=== PATIENT | male | born 1965 | race Caucasian/White ===

== ENCOUNTER 2016-09-13 20:38 | Observation (INO) | payer OTHER ==
[~2016-09-13] VITALS: Ht 182.9 cm; Wt 90.9 kg
[~2016-09-13 20:38] MED LIST: CENTRUM MEN'S1 EACH PO; CITALOPRAM HBR20 MG PO; CLARITIN10 M3 PO; FISH OIL 1,0001 EAC7 PO; FOLIC ACID1 MG PO; INDERAL10 MG PO; NORVASC10 MG PO; PROTONIX40 MG PO; THIAMINE HCL100 MG PO; TUMS500 MG PO; ZOLPIDEM TARTRAT5 MG PO
[2016-09-13 21:07] LABS: HEMATOCRIT 45.8 % (38.0-50.0); MCH 32.4 PG (29.0-34.0); MCHC 34.1 G/DL (30.0-36.0); MEAN PLAT.VOLUME 9.4 uM^3 (9.0-12.4); PLATELET COUNT 106 K/uL (156-360); RBC DIS.WIDTH-CV 11.4 % (11.8-14.6); RBC DIS.WIDTH-SD 39.8 % (39-53); RED BLOOD COUNT 4.82 M/uL (4.00-5.50); WHITE BLOOD COUNT 5.1 K/uL (4.1-10.2)
[2016-09-13 21:16] LABS: CHLORIDE 101 mEq/L (99-109); POTASSIUM 3.4 mEq/L (3.7-5.4); SODIUM 139 mEq/L (136-147)
[2016-09-13 21:18] LABS: GLUCOSE 92 mg/dL (70-99)
[2016-09-13 21:19] LABS: ANION GAP 13 MEQ/L (2-14)
[2016-09-13 21:22] LABS: GFR ESTIMATE (CALCULATED) > 59 mL/min/
[2016-09-13 21:23] LABS: UREA NITROGEN (BUN) 8 mg/dL (9-23)
[2016-09-13 21:27] LABS: TROP-I INTERPRETATION NEGATIVE; TROPONIN-I < 0.01 ng/mL (0.0-0.30)
[2016-09-13] MEDS ORDERED: AMLODIPINE BES2.5 MG PO (22:15)
[2016-09-13] MEDS ORDERED: ZOLPIDEM TARTRA10 MG PO (22:18)
[2016-09-14 00:59] LABS: MAGNESIUM 2.2 mg/dL (1.3-2.7)
[2016-09-14 01:02] LABS: TOTAL BILIRUBIN 0.8 mg/dL (0.0-1.0)
[2016-09-14 01:03] LABS: ALKALINE PHOSPHATASE 73 IU/L (3-129)
[2016-09-14 01:06] LABS: DIRECT BILIRUBIN 0.2 mg/dL (0.0-0.3)
[2016-09-14 01:07] LABS: LIPASE 54 U/L (1.0-51.0)
[2016-09-14 01:28] VITALS: BP 168/95
[2016-09-14 03:28] LABS: SERUM ETHYL ALCOHOL 88 mg/dL
[2016-09-14 03:56] LABS: TROP-I INTERPRETATION NEGATIVE; TROPONIN-I < 0.01 ng/mL (0.0-0.30)
[2016-09-14 04:52] VITALS: BP 141/92
[2016-09-14 09:33] LABS: TROP-I INTERPRETATION NEGATIVE; TROPONIN-I < 0.01 ng/mL (0.0-0.30)
[2016-09-14 09:48] VITALS: BP 172/84
[2016-09-14 11:24] VITALS: BP 163/81
[2016-09-14] MEDS ORDERED: AMLODIPINE BES2.5 MG PO (12:39)
== END 2016-09-14 13:09 | disposition home or self-care (01) ==
LOC: EME 20:38 → EXP 20:38 → EDOF 09-14 00:21 → 5WEST 09-14 01:06
PROVIDERS: Hospitalist
DX: R07.89 Other chest pain (principal); E78.5 Hyperlipidemia, unspecified; I10 Essential (primary) hypertension; F10.21 Alcohol dependence, in remission; Z86.718 Personal history of other venous thrombosis and embolism; K70.9 Alcoholic liver disease, unspecified; D69.59 Other secondary thrombocytopenia; R20.0 Anesthesia of skin
CPT/HCPCS: 71020; 80048; 80076; 83690; 83735; 84484; 85027; 93005; 99281; 99285; G0378; G0480